=== PATIENT | male | born 1955 | race Caucasian/White ===

== ENCOUNTER 2022-05-03 06:21 | Day surgery (SDC) | payer MEDICARE ==
[2022-05-03] MEDS ORDERED: Midazolam 1 MG/ML 2 ML SDV ONE (07:14)
[2022-05-03] MEDS ORDERED: fentaNYL 100 MCG/2 ML SDV ONE (07:14)
[2022-05-03] MEDS ORDERED: Propofol 200 MG/20 ML SDV ONE (07:14)
[2022-05-03] MEDS ORDERED: Lactated Ringers 1,000 ML IV SCH (07:30)
[2022-05-03 09:29] VITALS: BP 141/103; PULSE 73
== END 2022-05-03 09:32 | disposition home or self-care (01) ==
LOC: JP.SDS 06:21
PROVIDERS: ATTEND Hospitalist
DX: Z12.11 Encounter for screening for malignant neoplasm of colon (principal); K57.30 Diverticulosis of large intestine without perforation or abscess without bleeding; E66.9 Obesity, unspecified; Z85.038 Personal history of other malignant neoplasm of large intestine; Z79.899 Other long term (current) drug therapy; Z68.33 Body mass index [BMI] 33.0-33.9, adult
CPT/HCPCS: J2250; J2704; J3010; J7120